=== PATIENT | female | born 1950 | race Caucasian/White ===

== ENCOUNTER 2022-08-03 22:06 | Emergency (ER) | payer OTHER ==
[~2022-08-03] VITALS: Ht 152.4 cm; Wt 46.3 kg
--- NOTE | 2022-08-03 22:31 | NUR ---
Not able to assess patients mental status, patient refuses to answer questions "hmm" Patients with no signs of distress or discomfort. Will continue to monitor throughout shift. All safety precautions taken.
--- NOTE | 2022-08-03 22:50 | NUR ---
Blood and culture collected, sent to lab
--- NOTE | 2022-08-03 22:51 | NUR ---
Swallow eval pending, patient refuses to participate or follow command. Not able to assess patietns mental status
[2022-08-03] MEDS ORDERED: DEXTROSE 50%-WATER 50 ML DISP.SYRIN ONE (22:58)
[2022-08-03 23:00] LABS: BASOPHILS # (AUTO) 0.1 K/uL (0.0-0.2); BASOPHILS % (AUTO) 0.9 % (0.0-2.0); EOSINOPHILS % (AUTO) 2.3 % (0.0-6.0); HEMATOCRIT 35 % (33-45); HEMOGLOBIN 11.3 g/dL (11.5-14.8); LYMPHOCYTES # (AUTO) 1.1 K/uL (0.8-4.8); MEAN CORPUSCULAR HGB CONC 33 g/dl (31.0-36.0); MEAN CORPUSCULAR VOLUME 85 fL (82-100); MONOCYTES # (AUTO) 0.5 K/uL (0.1-1.30); NEUTROPHILS # (AUTO) 5.7 K/uL (1.8-8.9); NEUTROPHILS % (AUTO) 75.8 % (43.0-81.0); PLATELET COUNT (AUTO) 390 K/uL (150-450); RED BLOOD CELL COUNT(AUTO) 4.07 MIL/uL (4.0-5.2); WHITE BLOOD COUNT (AUTO) 7.6 K/uL (4.3-11.0)
[2022-08-03] MEDS ORDERED: DEXTROSE 50%-WATER 50 ML DISP.SYRIN IVP ONE (23:00)
[2022-08-03 23:14] LABS: SERUM AMMONIA 3 umol/L (11-32)
[2022-08-03 23:16] LABS: CALCIUM, SERUM 9.7 mg/dL (8.5-10.1); CARBON DIOXIDE 24 mmol/L (21-32); CHLORIDE 100 mmol/L (98-107); CREATININE 1.2 mg/dL (0.6-1.3); GLUCOSE 85 mg/dL (74-106); POTASSIUM 3.6 mmol/L (3.5-5.1); SODIUM SERUM 136 mmol/L (136-145); UREA NITROGEN, BLOOD 10 mg/dL (7-18)
[2022-08-03 23:26] LABS: ALANINE AMINOTRANSFERASE 26 U/L (12-78); ALBUMIN 3.4 g/dL (3.4-5.0); ALKALINE PHOSPHATASE 98 U/L (46-116); ASPARTATE AMINOTRANSFERASE 25 U/L (15-37); BILIRUBIN,DIRECT 0.1 mg/dL (0.0-0.2); BILIRUBIN,TOTAL 0.4 mg/dL (0.2-1.0); TOTAL PROTEIN, SERUM 9.7 g/dL (6.4-8.2)
[2022-08-03] MEDS ORDERED: CT SWABBABLE VALVE TRANS SET 1 EA INFUS.SET MC ONE (23:26)
[2022-08-03] MEDS ORDERED: IOHEXOL-350 100 ML VIAL IV ONE (23:26)
[2022-08-03] MEDS ORDERED: IV NS 0.9% 250 ML IV ONE (23:27)
[2022-08-03 23:51] LABS: ALCOHOL, BLOOD < 3 mg/dL (0-10)
[2022-08-03 23:53] LABS: BILIRUBIN,URINE NEGATIVE (NEGATIVE); COLOR,URINE YELLOW (YELLOW); LEUKOCYTE ESTERASE ,URINE NEGATIVE (NEGATIVE); NITRITE, URINE NEGATIVE (NEGATIVE); PH,URINE 6.5 (5.0-8.0); PROTEIN,URINE 2+ mg/dl (NEGATIVE); UGLUCOSE NEGATIVE (NEGATIVE); UROBILINOGEN,URINE 0.2 EU/dL (0.2)
[2022-08-03 23:54] LABS: BACTERIA,URINE Rare /HPF (None Seen); SQUAMOUS EPITHELIAL CELL,UR Few /HPF (None Seen); WBC,URINE 0-2 /HPF (0-3)
[2022-08-04] MEDS ORDERED: LORAZEPAM INJ 2 MG/ML VIAL ONE ×2 (00:13→00:21)
--- NOTE | 2022-08-04 00:16 | NUR ---
Pat out for CT and brought back due to seizure. Seizure contiinued while in the ER, placed on her side and supplemental condition was provided, Ativan 2mg pushed as ordered by . Blood sugar was 146. Seizure precautions initiated, ER team at bedside, seizure terminated.
--- NOTE | 2022-08-04 00:24 | NUR ---
TAKEN TO CT UNDER ACLS PROTOCOL
--- NOTE | 2022-08-04 00:24 | NUR ---
PT TAKEN TO CT VIA [facility]
--- NOTE | 2022-08-04 00:24 | NUR ---
COVID ANTIGEN SWAB COLLECTED AND SENT TO LAB
[2022-08-04] MEDS ORDERED: LORAZEPAM INJ 2 MG/ML VIAL IV ONE (00:30)
--- NOTE | 2022-08-04 00:44 | NUR ---
PT RETURNED TO ER BED [address]
--- NOTE | 2022-08-04 00:55 | NUR ---
CT completed, ativan not used, returned to [facility].
--- NOTE | 2022-08-04 01:19 | NUR ---
[facility] PAGED AWAITING CALL BACK FROM DR. GAMA
--- NOTE | 2022-08-04 01:24 | NUR ---
DR GAMA ON THE PHONE WITZo DILL
--- NOTE | 2022-08-04 02:25 | NUR ---
Called Radiology, they will work on CD/Imaging order and deliver
--- NOTE | 2022-08-04 03:31 | NUR ---
RAJIV OLSEN AT [facility]: PT GOT ACCEPTED AT [facility] UNDER CARE OF DR NEO MARTNIEZ. GOING TO RM [address]. # FOR REPORT: [phone]. ALS TRANSPORTATION W/ [facility]. ETA: [id number]
--- NOTE | 2022-08-04 04:17 | NUR ---
[facility] [place], DR NEO MARTINEZ. GOING TO 5[address]. # FOR REPORT: [phone]. ALS TRANSPORTATION W/ [facility]. ETA: [id number] -Called Jennifer RN and provided report. -Called Nadeem/-l/m with ETA info.
--- NOTE | 2022-08-04 06:02 | NUR ---
NEW [facility] ETA - 30 MIN
--- NOTE | 2022-08-04 06:10 | NUR ---
Transport at bedside [facility] #[id number] -Report given.
[2022-08-04 06:19] VITALS: BP 172/92
== END 2022-08-04 06:20 | disposition short-term general hospital (02) ==
LOC: ER 22:17
DX: R41.82 Altered mental status, unspecified (principal); E16.2 Hypoglycemia, unspecified; R56.9 Unspecified convulsions; F11.10 Opioid abuse, uncomplicated; Z85.528 Personal history of other malignant neoplasm of kidney; Z20.822 Contact with and (suspected) exposure to COVID-19
CPT/HCPCS: 99285; 96374; 93005; 71045; 70450; 71275; 82140; 85025; 80048; 87040 ×2; 83605; 80076; 81001; 36415; 84484; 85730; 82962 ×3; 80143; 80320; 80307; 96375; 87426; J7050; Q9967; J2060; C9803; G0480